=== PATIENT | male | born 1985 | race Native Hawaiian/Other Pacific Islander ===

== ENCOUNTER 2020-03-22 03:07 | Emergency (ER) | payer OTHER ==
[~2020-03-22] VITALS: Ht 175.3 cm; Wt 65.3 kg
[2020-03-22 03:53] LABS: PLATELET COUNT 337 K/uL (142-355)
[2020-03-22 04:04] LABS: POTASSIUM 3.6 mmol/L (3.6-5.2)
[2020-03-22 05:11] VITALS: BP 135/100; TEMP 98.4
== END 2020-03-22 05:11 | disposition home or self-care (01) ==
LOC: ED 03:07
PROVIDERS: Emergency Medicine
DX: R33.8 Other retention of urine (principal)
CPT/HCPCS: 36415; 80053; 80307; 81000; 85027; 96360; 99284

== ENCOUNTER 2023-05-28 16:39 | Emergency (ER) | payer OTHER ==
[~2023-05-28] VITALS: Ht 175.3 cm; Wt 70.3 kg
[2023-05-28 16:40] VITALS: BP 144/97; TEMP 98.9
== END 2023-05-28 17:40 | disposition home or self-care (01) ==
LOC: ED 16:39
DX: R30.0 Dysuria (principal); A64 Unspecified sexually transmitted disease
CPT/HCPCS: 81002; 87590; 99283; J0696